=== PATIENT | male | born 1970 | race Caucasian/White ===

== ENCOUNTER → 2017-03-05 | Outpatient (CLI) | payer OTHER ==
[~2017-03-05] MED LIST: ASCO1CAP3 PO; CLB200 PO; CZR50 PO; MELA3TAB7 PO; MELO7.5T7 PO; MGCS/ PO; MULT-506 PO; NIAC500T11 PO; PRLSR20 PO; SIMV20TA2 PO; VITA400C15 PO
--- NOTE | 2017-03-05 07:46 | DIAGNOSTIC IMAGING REPORT ---
DOUBLE CONTRAST UPPER GI SERIES CLINICAL HISTORY: Dysphagia. COMPARISON STUDY: Abdominal CT dated 12/14/2015. TECHNIQUE: A standard air contrast upper GI series was performed. Spot images of the esophagus and stomach were obtained in multiple obliquities both upright and prone. FINDINGS: The patient swallowed barium without difficulty. The esophagus is structurally normal without evidence of intrinsic or extrinsic mass. The esophageal mucosal pattern is normal. No gastroesophageal reflux was elicited by having the patient perform the Valsalva maneuver. The gastroesophageal junction distends normally. The stomach is normal in configuration and demonstrates normal distensibility. No mass or ulceration is identified. There was no evidence of gastritis. The duodenal bulb and sweep are unremarkable. Fluoroscopy time: 1.9 minutes. Fluoroscopic images: 22 IMPRESSION: Normal examination. Electronically signed by: Kelvin Sanchez M.D. 03/05/2017 7:45 AM Dictated Date/Time: 03/05/2017 7:44 AM
== END | disposition home or self-care (01) ==
LOC: C.RAD 07:10
PROVIDERS: ATTEND Internal Medicine Gastroenterology
DX: R13.10 Dysphagia, unspecified (principal)